=== PATIENT | female | born 1995 | race Caucasian/White ===

== ENCOUNTER 2024-11-27 21:06 | Emergency (ER) | payer OTHER, SELFPAY ==
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
[2024-11-27 21:16] VITALS: BP 117/78; PULSE 97; RESP 20; TEMP 36.2; O2SAT 98; BMI 29.9
--- OUTSIDE RECORDS SUMMARY | 2024-11-27 21:32 | XMS_ITS | Encounter Summary ---
Author Organization [facility] Address [address] [place] [address] Care Team Providers Care Target Network Analyst Name Role Phone Grace Santana DO Primary Care Provider [phone] Reason for Visit * Reason Comments New Patient Encounter Details Date Type Department Care Team (Late st Contact Info) Description 10/31/2024 Telephone [facility] [address] [address] Fabby Proctor CRNP, MSN [address] [address] New Patient Social History Tobacco Use Types Packs/Day Years Used Date Smoking Tobacco: Never Assessed Comments Unknown Sex and Gender Information Value Date Recorded Sex Assigned at Not on file Legal Sex Female 11:18 PM EDT Gender Identity Not on file Sexual Orientation Not on file documented as of this encounter Miscellaneous Notes * Telephone Encounter - Letitia Ellington - 11/02/2024 12:17 PM EDT 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 Previous crani @ 2010 Dr. 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 Should she wait for report to be faxed or is she ok to make an apt * Telephone Encounter - Jason Martins - 10/31/2024 12:17 PM EDT NEW PATIENT APPOINTMENT New patient intake completed - please see Flowsheet. PT doesn't have imaging done yet. She has a script from Pcp already though. Will call us once imaging is completed to schedule. How will records be sent (in [facility], in Care Everywhere, via fax)? Via fax If faxing, provide fax number based on Provider location If not referred to a specific provider, provide F# [phone] for records to be faxed. Is patient's insurance a participating [facility] insurance? (Yes/NON-PAR) par If NON-PAR, do NOT schedule appointment, inform patient case will be reviewed Appointment scheduled for nt scheduled no imaging If not scheduled and sent for review, put ???N/A?? and the reason why the appt wasn't scheduled I advised the patient to bring their imaging CD to the appointment (Yes/No) - yes I advised the patient that appointment scheduled is subjected to change based upon review (Yes/No) - no If Provider does not treat diagnosis, did you inform the patient of this? (Yes/No) - no If it does not apply, please use N/A All General Questions Were you referred to a specific provider?: No Who is referring you for neurosurgical care?: Dr Arcos Phone number for referring provider?: [phone] Does your insurance require a referral?: No Is this visit related to a MVA or WC case?: No (Ask) Please let me know what you are looking to be seen for?: Brain - Tumor, Cranial Nerve, Neurovascular (Do not ask but check protocol) Is patient's insurance plan a participating [facility] insurance?: Yes Brain - Tumor, Cranial Nerve, Neurovascular Do you have a diagnosis? : Yes Diagnosis:: low grade tectal glioma Do you have pain?: No Do you have seizures?: No Do you have language difficulties?: No Are you having any visual changes?: Yes (double vision, progressing bad to when had - dorsal mid brain issue) Are you experiencing any weakness?: No Have you had Chemo or Radiation?: No Have you had prior brain surgery? : Yes When did you have brain surgery?: 03/14 Where did you have brain surgery?: Dr Haro Have you had any imaging for this?: No Route to referred provider's New Patient Pool. If the reason to be seen is for SHUNTS/HYDROCEPHALUS, please route to [facility] HYDROCEPHALUS/SHUNT NEW PATIENT POOL. documented in this encounter Plan of Treatment Upcoming Encounters Date Type Department Care Team (Latest Contact Info) Description 01/15/2025 1:30 PM EDT Office Visit [facility] - Neurology [address] [place] [address] [place] [address] Jamin Ren MD [address] [place] [address] Referred by PCP - Visual Changes documented as of this encounter Visit Diagnoses Not on filedocumented in this encounter Care Teams Target Network Analyst Relationship Specialty Start Date End Date Grace Santana DO PCP - General Emergency Medicine 10/15/14 documented as of this encounter
--- OUTSIDE RECORDS SUMMARY | 2024-11-27 21:32 | XMS_ITS | Encounter Summary ---
Author Organization [facility] Address [address] [place] [address] Phone Care Team Providers Care Teamsite Developer Name Role Phone Jett العراقيcecelia Unavailable Grace Santana DO Primary Care Provider [phone] Source Comments This summary of care document has been generated from [facility]. It contains important information for the transfer of care, and complies with [facility] Meaningful Use requirements. If you have received this document in error, please contact [facility] by calling [phone], or email us at: [email or web address] Reason for Visit * Reason Onset Date Comments Follow Up 08/31/2014 Encounter Details Date Type Department Care Team (Late st Contact Info) Description 08/31/2014 [facility] [address] [place] [address] Zuleima Rapp RN [address] [place] [phone] Follow Up Social History Tobacco Use Types Packs/Day Years Used Date Smoking Tobacco: Former Cigarettes Q uit: 06/22/2012 Smokeless Tobacco: Never Alcohol Use Standard Drinks/Week Comments Yes 2.5 (1 standard drink = 0.6 oz p ure alcohol) Comments No Sex and Gender Information Value Date Recorded Sex Assigned at Not on file Legal Sex Female 9:44 AM EST Gender Identity Not on file Sexual Orientation Not on file documented as of this encounter Miscellaneous Notes * Telephone Encounter - Zuleima Rapp RN - 08/31/2014 3:44 PM EDT Mom called to see if the MRI was received at [facility] and was looked at by Dr Greer. Denice complaints of near syncopal episodes, nausea, vertigo, muscle weakness they last about 4 days and occur about every 6 weeks. She is going to a neurologist locally for evaluation and was given the information to call for record transfer. documented in this encounter Plan of Treatment Not on file documented as of this encounter Visit Diagnoses Not on filedocumented in this encounter Care Teams Teamsite Developer Relationship Specialty Start Date End Date Grace Santana DO [address] [place] [id number] PCP - General 11/09/12 Chacorta العراقي [address] [facility] Floor [address] [place] [address] Care Team General Pediatrics 09/06/06 documented as of this encounter
--- OUTSIDE RECORDS SUMMARY | 2024-11-27 21:32 | XMS_ITS | Clinical Summary ---
Author Organization [facility] Address [address] [place] [address] Phone Care Team Providers Care Blast Hole Driller Name Role Phone Grace Santana DO Primary Care Provider [phone] Allergies No known active allergies Medications escitalopram (LEXAPRO) 10 mg tablet Take 10 mg by mouth daily Active escitalopram (LEXAPRO) 5 mg tablet Take 5 mg by mouth daily Active ondansetron (ZOFRAN) 4 mg tabletIndicatio ns:Gastritis Take 1 tablet (4 mg total) by mouth every 8 (eight) hours as needed for nausea or vomiting 5 tablet 06/26/2018 Active omeprazole (PriLOSEC) 20 mg delayed release capsuleIndicati ons:Gastritis Take 1 capsule (20 mg total) by mouth daily 20 capsule 06/26/2018 Active Social History Tobacco Use Types Packs/Day Years Used Date Smoking Tobacco: Never Smokeless Tobacco: Never Alcohol Use Standard Drinks/Week Comments Yes 0 (1 standard drink = 0.6 oz pur e alcohol) socially (once a month) Comments No Sex and Gender Information Value Date Recorded Sex Assigned at Not on file Legal Sex Female 5:42 AM EDT Gender Identity Not on file Sexual Orientation Not on file Last Filed Vital Signs Vital Sign Reading Time Taken Comments Blood Pressure 100/61 06/26/2018 9:30 AM EDT Pulse 86 06/26/2018 9:30 AM EDT Temperature 36.6 C (97.9 F) 06/26/2018 5:48 AM EDT Respiratory Rate 22 06/26/2018 9:30 AM EDT Oxygen Saturation 98% 06/26/2018 9:30 AM EDT Inhaled Oxygen Concentration - - Weight 82.6 kg (182 lb) 06/26/2018 5:48 AM EDT Height 167.6 cm (5' 6 ) 06/26/2018 5:48 AM EDT Body Mass Index 29.38 06/26/2018 5:48 AM EDT Plan of Treatment Not on file [place] [employer] Care Teams Blast Hole Driller Relationship Specialty Start Date End Date Grace Santana DO [address] [place] [address] [address] JOSE JOHNS [phone] PCP - General Internal Medicine 06/26/18
--- OUTSIDE RECORDS SUMMARY | 2024-11-27 21:32 | XMS_ITS | Encounter Summary ---
Author Organization [facility] Address [address] [place] [address] Care Team Providers Care Television News Anchor Name Role Phone Saloni Paiz RN Unavailable Grace Santana DO Primary Care Provider [phone] Encounter Details Date Type Department Care Team (Late st Contact Info) Description 07/20/2019 Lab Requisition [facility] [address] [place] [address] January Prescott DO [address] [place] [address] Cough; Contact with and (suspected) exposure to other viral communicable diseases Social History Tobacco Use Types Packs/Day Years Used Date Smoking Tobacco: Never Assessed Comments Unknown Sex and Gender Information Value Date Recorded Sex Assigned at Not on file Legal Sex Female 11:27 PM EST Gender Identity Not on file Sexual Orientation Not on file documented as of this encounter Plan of Treatment Not on file documented as of this encounter Procedures Procedure Name Priority Date/Time Associated Diagnosis Comments SARS COV-2 (COVID-19) ADELINE STAT 07/20/2019 1:00 PM EDT Cough Contact with and (suspected) exposure to other viral communicable diseases documented in this encounter Results * SARS COV-2 (COVID-19) ADELINE (07/20/2019 1:00 PM EDT) SARS-CoV-2 RNA Qualitative NAAT Negative Negative 07/21/2019 1:43 PM EDT [facility] Comment:SARS-CoV-2 RNA Not D etected. Negative results do not preclude SARS-CoV-2 infection and should not be used as the sole basis for patient management decisions. Negative results must be combined with clinical observations, patient history, and epidemiological information. Swab (specimen) Combined nasopharyngeal and oropharyngeal swab / Unknown 07/20/2019 1:00 PM EDT 07/21/2019 7:18 AM EDT Narrative [facility] - 07/21/2019 1:43 PM EDT Methodology: Yaz janes SARS-CoV-2 cleared for Emergency Use Only under FDA. FDA approved specimen types include nasopharyngeal swab or oropharyngeal swab collected using [place] UTM-RT system or BD [place] Viral Transport System (UVT). The janes SARS-CoV-2 is a real-time qualitative PCR assay. This assay utilizes two targets - one is the ORF1/a, a non structural region unique to SARS-CoV-2. The other, chosen for kirk-Sarbecovirus detection, is specific to a conserved region in the structural protein envelope E-gene. Both targets will detect SARS-CoV-2 viral RNA. The test was modified and validated in-house for use with nasopharyngeal swab or oropharyngeal swab collected using BD UTM or E-swab collection device, bronchial washes, or bronchial lavage. The performance characteristics for these additional specimen types were determined by the [facility] Laboratory of [facility]. It has not been cleared or approved by the U.S. Food and Drug Administration (FDA).The FDA has determined that such clearance or approval is not necessary. This laboratory is certified under the Clinical Laboratory Improvements Act of 1988 (CLIA-88) as qualified to perform high complexity clinical testing. For additional information regarding diagnostic use of Emergeny Use Only testing kits, please visit https://www.fda.gov/media/649688/download for a Fact Sheet supplied by the FDA. January Prescott DO LAB MICROBIOLOGY - GENERAL OR DERABLES Final Result [facility] [address] [place] [address] documented in this encounter Visit Diagnoses Diagnosis Cough Contact with and (suspected) exposure to other viral communicable diseases documented in this encounter Additional Health Concerns Infection Onset Date Last Indicated Resolved Time Covid-19 - Person Under Investigation 04/02/2021 04/02/2021 04/03/2021 1:[address] documented as of this encounter Care Teams Television News Anchor Relationship Specialty Start Date End Date Grace Santana DO [address] [place] [address] [place] [address] PCP - General Internal Medicine 04/02/21 Saloni Paiz, YUNIOR [address] [place] [address] Wad Impregnator/Coordinator 04/12/2008/07 documented as of this encounter
--- OUTSIDE RECORDS SUMMARY | 2024-11-27 21:32 | XMS_ITS | Clinical Summary ---
Author Organization [facility] Address [address] [place] [address] Care Team Providers Care Photo Mask Inspector Name Role Phone Max Grace Luis DO Primary Care Provider [phone] Allergies No known active allergies Medications * This document contains information received from the source organization and may not represent a complete record from that organization. vilazodone (Viibryd) 40 mg tablet tablet take 1 tablet daily 30 tablet 1 08/05/2020 Active Social History Tobacco Use Types Packs/Day Years Used Date Smoking Tobacco: Never Assessed Comments Unknown Sex and Gender Information Value Date Recorded Sex Assigned at Not on file Legal Sex Female 11:27 PM EST Gender Identity Not on file Sexual Orientation Not on file Last Filed Vital Signs Vital Sign Reading Time Taken Comments Blood Pressure 107/73 04/02/2021 1:21 PM EST Pulse 81 04/02/2021 1:21 PM EST Temperature 36.4 C (97.5 F) 04/02/2021 1:21 PM EST Respiratory Rate 18 04/02/2021 1:21 PM EST Oxygen Saturation 99% 04/02/2021 1:21 PM EST Inhaled Oxygen Concentration - - Weight - - Height - - Body Mass Index - - Plan of Treatment Health Maintenance Due Date Last Done Comments Annual Preventative Visit 09/05/2020 09/06/2019 Cervical Cancer Screening 11/05/2023 Influenza Vaccine (#1) 2024 3, 02/10/2012, 01/07/2011, Additional history exists Zoster Vaccines (1 of 2) 11/05/2043 Hepatitis C Screening Completed 04/11/2020 Pneumococcal immunization (0-49) Aged Out No longer eligible based on patient's age to complete this topic Procedures Procedure Name Priority Date/Time Associated Diagnosis Comments EAP CONVERSION ACUTE HEPATITIS PANEL Routine 04/11/2020 11:28 AM EST from Last 3 Months or Most Recently Relevant to Health Maintenance Results * ACUTE HEPATITIS PANEL (04/11/2020 11:28 AM EST) HEPATITIS A AB IGM NONREACTIVE NR [facility] [facility] HISTORIC HEP B CORE AB IGM NONREACTIVE NR [facility] HIST[facility] HEP B SURF ANTIGEN NONREACTIVE NR [facility] HISTORIC HEPATITIS C ANTIBODY NONREACTIVE NR [facility] HISTORIC 04/11/2020 11:2 8 AM EST 04/11/2020 11:42 AM EST us Tom Morin DO LAB BLOOD ORDERABLES Final Result [facility] HISTORIC from Last 3 Months or Most Recently Relevant to Health Maintenance Care Teams Photo Mask Inspector Relationship Specialty Start Date End Date Grace Santana DO [address] [place] [address] PCP - General Internal Medicine 04/02/21
--- OUTSIDE RECORDS SUMMARY | 2024-11-27 21:32 | XMS_ITS | Clinical Summary ---
Author Organization [facility] Address [address] [place] [address] Care Team Providers Care Tripe Washer Name Role Phone Grace Santana DO Primary Care Provider [phone] Allergies No known active allergies Encounters Date Type Department Care Team Description 10/31/2024 Telephone [facility] [address] [facility] [address] [place] [address] Fabby Proctor CRNP, MSN New Patient from Last 3 Months Immunizations Immunization Administration Dates Next Due MMR 10/17/2014 Social History Tobacco Use Types Packs/Day Years Used Date Smoking Tobacco: Never Assessed Comments Unknown Sex and Gender Information Value Date Recorded Sex Assigned at Not on file Legal Sex Female 11:18 PM EDT Gender Identity Not on file Sexual Orientation Not on file Plan of Treatment Upcoming Encounters Date Type Department Care Team (Latest Contact Info) Description 01/15/2025 1:30 PM EDT Office Visit [facility] - Neurology [address] [place] [address] [place] [id number] Jamin Ren MD [address] [place] [address] Referred by PCP - Visual Changes Health Maintenance Due Date Last Done Comments HEPATITIS C SCREENING 1993 HIV SCREENING ONCE 2008 LIPIDS 11/05/2011 Colposcopy 2014 Excision 2014 Pap Smear 2014 DTAP/TDAP/TD Vaccine (6 - Td or Tdap) 11/18/2016 11/18/2006, 05/05/1995, 05/18/1994, Additional history exists Cervical Cancer Screening 11/05/2023 HPV/Cotest 11/05/2023 COVID-19 Vaccine ( season) 2023 INFLUENZA Vaccine (#1) 2024 , 01/04/2023, 03/09/2013, Additional history exists ZOSTER VACCINES (1 of 2) 11/05/2043 Hepatitis A Vaccine Completed 11/18/2006, HPV Vaccine Completed 06/09/2012, 01/21, 08/19/2011 Pneumococcal 0-49 Vaccine Aged Out No longer eligible based on patient's age to complete this topic Insurance [facility] Care Teams Tripe Washer Relationship Specialty Start Date End Date Grace Santana DO PCP - General Emergency Medicine 10/15/14
--- OUTSIDE RECORDS SUMMARY | 2024-11-27 21:32 | XMS_ITS ---
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 Unable to look up. Has seen Dr. Lopes anymore. 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 The tumor is low grade; however grading may be difficult relative to the small dimension. Correlation with clinical findings and imaging is required for optimal evaluation. Seeing [facility] Neurosurgery - Dr. Haro. Seeing Dr. Flores - 08/22/12 - stable Diagnoses: 1. Tectal Glioma Impression/Plan: Denice is a 16 year old female with a tectal glioma and history of chronic headaches, panic attacks and an anxiety disorder. These symptoms have all largely resolved in the past year and Ally is feeling very well. 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 Zoey Galdamez is a 16 year old female with a tectal glioma and history of chronic headaches, panic attacks and an anxiety disorder. These symptoms have all largely resolved in the past year and Ally is feeling very well. Her MRI from last week shows a stable residual tectal mass without evidence of hydrocephalus. I will see her back in six months' time for an MRI and follow up examination. Sooner, if the need arises. Glioma of midbrain Overview (02/21/2016): Tectal Glioma POTS (postural orthostatic tachycardia syndrome) Astrocytoma Overview (02/21/2016): 03/19 sterotactic bx, 03/14 tumor bx and endoscopic ventriculostomy Current Treatment and Therapy Plans No current plan information found. Past Treatment and Therapy Plans No past plan information found. Lifetime Dose Tracking * Chemical Lifetime Dose Automatic Entry Manual Entr y gadopentetate dimeglumine 49.2 mL 49.2 mL 0 mL gadobutrol 26.8 mL 26.8 mL 0 mL Resolved Problems Problem Noted Date Diagnosed Date Resolved Date Anxiety 08/19/2011 03/09/2013 Vocal cord dysfunction 08/19/201108/18 Overview (08/19/2011): Hasn't had this in a while Improved with treatment for anxiety Dyspnea 03/12/2011 08/19/2011 Chest pain 01/21/2011 08/19/2011 Overview (06/13/2011): Feel it is anxiety. Extensive workup has been normal. She is seeing a couselor. Breathing difficulty 01/21/2011 012 Dizziness 04/15/2010 08/19/2010 Overview (04/15/2010): 1 week of rushing sensation to head and dots/tunnel vision, worse when standing; weak in hot shower. 1 day of world turned sideways , feeling she would fall. +occasional episodes of tinnitis No fall, syncope, LOC. No ASTUDILLO, emesis. Low back pain 01/31/2009 01/28/2010 Spinal asymmetry (< 10 degrees) 01/31/2009 08/19/2011 costochondritis 2005 08/18/2010 Overview (2005): Has seen Dr. Barfield and pain management clinic. Benign neoplasm of scalp and skin of neck 06/15/2005 08/19/2010
--- OUTSIDE RECORDS SUMMARY | 2024-11-27 21:32 | XMS_ITS | Clinical Summary ---
Author Organization [facility] Address [address] [address] Phone Care Team Providers Care Operations And Intelligence Assistant Name Role Phone Jett العراقيcecelia Unavailable Grace Santana DO Primary Care Provider [phone] Allergies No known active allergies Medications Viibryd 40 MG Oral TABS Take 40 mg by mouth once a day. 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 The tumor is low grade; however grading may be difficult relative to the small dimension. Correlation with clinical findings and imaging is required for optimal evaluation. Seeing [facility] Neurosurgery - Dr. Haro. Seeing Dr. Flores - 08/22/12 - stable Diagnoses: 1. Tectal Glioma Impression/Plan: Willie is a 16 year old female with [...] 03/13 Overview (10/30/2012): 08/22/12 - seeing Dr. Greer - Willie is a 16 year old female with [...] bx, 03/14 tumor bx and endoscopic ventriculostomy Resolved Problems Problem Noted Date Diagnosed Date [...] scalp and skin of neck 06/15/2005 08/19/2010 Immunizations Immunization Administration Dates Next Due DTP 11/13/1998 DTP/HiB 05/05/1995, 5,03/09/1994,01/12/19 94 Flu LIVE, intraNASAL 01/28/2010,01/24/2009 Flu-H1N1, injectable, 3 + yrs 01/28/2009 HPV4 (Gardasil) 06/09/2012,02/10/2012,08/19/2011 Hepatitis A (Not Specified) 11/18/2006, 6 Hepatitis B, Ped/adol (3 dose) 11/10/1994,1993,1993 Influenza (Not Specified) 03/09/2013,,01/07/2011,01/02/20 08,01/30/2003 MMR 11/13/1998,01/08/1995 Meningococcal (MenACTra) Conjugate 08/19/2010, OPV 05/05/1995, 5,03/09/1994,01/12/19 94 PPD 08/22/2012 Td (7+ yo)(Not Specified) 10/24/2004 Tdap (boostrix/adacel) 11/18/2006 Varicella 11/18/2006,12/13/1997 Family History Medical History Relation Name Comments Heart-Other Brother prolonged qt Asthma Father Hypercholesterolemia Father Heart-Other Maternal Grandfather afib Hypercholesterolemia Maternal Grandfather Hayfever/allergic Mother Blood-Sickle Paternal Grandfather lung Cancer Paternal Grandfather lung Heart-Early [place] Paternal Grandfather Cancer Paternal Grandmother breast Substance Use Paternal Uncle Defect No Family History Blood-Other No Family History Childhood No Family History Diabetes No Family History Eczema No Family History Hypertension No Family History Intellectual Disability (ID) No Family History Kidney No Family History Psychiatric No Family History SUDDEN No Family History Seizures No Family History Tuberculosis No Family History Relation Name Status Comments Brother Father Maternal Grandfather Mother Paternal Grandfather Paternal Grandmother Paternal Uncle Social History Tobacco Use Types Packs/Day Years [...] Sign Reading Time Taken Comments Blood Pressure 127/79 04/01/2020 3:08 PM EST Pulse 119 04/01/2020 3:08 PM EST Temperature 36.1 C (97 F) 04/01/2020 3:08 PM EST Respiratory Rate 20 04/01/2020 3:08 PM EST Oxygen Saturation 99% 09/16/2010 8:42 AM EDT Inhaled Oxygen Concentration - - Weight 89.3 kg (196 lb 13.9 oz) 04/01/2020 3:08 PM EST Height 167.5 cm (5' 5.95 ) 04/01/2020 3:08 PM ES T Body Mass Index 31.83 04/01/2020 3:08 PM EST Plan of Treatment Health Maintenance Due Date Last Done Comments COVID-19 Vaccine ( season) 2024, 05/08/2020 [address] [place] [id number] [employer] PPO & POS Care Teams Operations And Intelligence Assistant Relationship Specialty Start Date End Date Grace Santana DO [address] [place] [address] [place] [id number] PCP - General 11/09/12 Chacorta العراقي [address] [facility] Floor 2 [place] [address] Care Team General Pediatrics 09/06/06
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
[2024-11-27 22:13] LABS: UPreg QC Valid YES
[2024-11-28 00:10] VITALS: BP 108/64; PULSE 84; RESP 20; TEMP 37; O2SAT 97
[2024-11-28 00:16] VITALS: BP 117/78; PULSE 97; RESP 20; TEMP 36.2; O2SAT 98
== END 2024-11-28 00:16 | disposition home or self-care (01) ==
PROVIDERS: Physician Assistant Medical; Emergency Provider Emergency Medicine
DX: S06.0X0A Concussion without loss of consciousness, initial encounter (principal); Y04.8XXA Assault by other bodily force, initial encounter; Y93.89 Activity, other specified; Y92.239 Unspecified place in hospital as the place of occurrence of the external cause; Y99.0 Civilian activity done for income or pay; R51.9 Headache, unspecified; H53.149 Visual discomfort, unspecified; R42 Dizziness and giddiness
CPT/HCPCS: 70450; 70486; 81025; 99283; 99284

== ENCOUNTER → 2024-11-27 21:45 | Outpatient (BNV) | payer OTHER, SELFPAY | PROVIDERS: Emergency Provider Emergency Medicine; Visit Provider Student in an Organized Health Care Education/Training Program | DX: S00.83XA Contusion of other part of head, initial encounter (principal); S06.0XAA Concussion with loss of consciousness status unknown, initial encounter | CPT/HCPCS: 70450; 70486 ==

== ENCOUNTER 2024-12-15 13:34 | Outpatient (REF) | payer BC, SELFPAY ==
--- NOTE | ~2024-12-15 | MR_ITS ---
CLINICAL HISTORY: VISION CHANGES (DIFFICULTY SEEING RT SIDE) MR Brain with and without gadolinium Comparison: 11/27/2024 CT Findings: No restricted diffusion. Post interventional right frontal lobe changes. No midline shift. No hydrocephalus. Up to 10 x 10 mm, somewhat nodular, mildly FLAIR hyperintense region in the right superior colliculus and neighboring left paramidline aspect of the quadrigeminal plate with a neighboring small cystic focus (this is continuous with a more proximal thin tract like focus possibly site of prior intervention/biopsy; old hemorrhagic products are seen at level of the cystic focus; correlation with past surgical history recommended) is seen. No evidence of abnormal enhancement at this level or rest of the brain. Vascular flow voids are intact. The orbits are normal. Small left maxillary sinus polyp/retention cyst. No focal bone lesion. IMPRESSION: 10 mm, somewhat nodular, mildly FLAIR hyperintense region in the right superior colliculus and neighboring left paramidline aspect of the quadrigeminal plate with a neighboring small cystic focus (this is continuous with a more proximal thin tract like focus possibly site of prior intervention/biopsy; correlation with past surgical history recommended) is seen. Neoplastic process (such as glioma) cannot be excluded. Correlation with past history and MRI would be of value. No evidence of abnormal enhancement at this level or rest of the brain. This document has been electronically signed by: Kusum Murry MD on 12/18/2024 13:51:50
--- OUTSIDE RECORDS SUMMARY | 2024-12-15 14:54 | XMS_ITS | Patient Health Record ---
Author Organization [facility] Address [address] [place] [address] [address] [place] [address] Care Team Providers Care Network Pricing Consultant Name Role Phone Laly Arcos Primary Care Provider Allergies No Known Allergies Reason For Referral No Information Medications Medication SIG (Take, Route, Fr equency, Duration) Notes Start Date End Date Status lamoTRIgine 100 MG TAKE 1 TABLET (100MG ) BY MOUTH DAILY Oral; Duration: 30 Days Ac tive Problems Problem Type SNOMED Code ICD Code Onset Dates Problem Status W/U Status Risk Notes Problem Mixed anxiety and depressive disorder (724103186) Anxiety and depression (F41.8) Active confirmed Problem Postural orthostatic tachycardia syndrome (disorder) (792970342) POTS (postural orthostatic tachycardia syndrome) (I49.8) Active confirmed Problem Low grade glioma of brain (737114449) 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 Vital Signs Heart Rate 90 /min 10/19/2024 Respiratory Rate 16 /min 10/19/2024 Height-cm 167.64 cm 10/19/2024 Oximetry 99 % 10/19/2024 Blood pressure diastolic 83 mm Hg 10/19/2024 Weight-kg 88.91 kg 10/19/2024 Height 66 in 10/19/2024 Blood pressure systolic 126 mm Hg 10/19/2024 Weight 196 lbs 10/19/2024 BMI 31.63 kg/m2 10/19/2024 Encounters Encounter Location Date Provider Diagnosis [facility] [address] [place] [id number] 10/20/2024 Laly Arcos [facility] [address] [place] [address] 10/19/2024 Laly Arcos Vision changes H53.9 ; POTS (postural orthostatic tachycardia syndrome) I49.8 ; Anxiety and depression F41.8 ; Screening for endocrine disorder Z13.29 ; Screening for lipid disorders Z13.220 ; Screening for diabetes mellitus (DM) Z13.1 ; Other general symptoms and signs R68.89 and Low grade glioma of brain C71.9 Assessments Encounter Date Diagnosis (ICD Code) Assessment Notes Treatment Notes Treatment Clinical Notes Section Notes 10/19/2024 Vision changes (ICD-10 - H53.9) Vision Changes: - Ddx includes - Advised to monitor sxs. Discussed when to seek emergency care - Referred to neuro-ophthalmo logy - Check Labs: Iron+TIBC, Ferritin, Vitamin B12+Folate, Vitamin D, Magnesium - Rx: MRI Brain w/ Contrast - F/U RESULTS - F/U PRN - Pt understands and agrees to plan 10/19/2024 POTS (postural orthostatic tachycardia syndrome) (ICD-10 - I49.8) POTS: - Established dx, controlled - Advised to monitor sxs. Discussed when to seek emergency care - Referred to cardiology - Check Labs: Iron+TIBC, Ferritin, Vitamin B12+Folate, Vitamin D, Magnesium - F/U RESULTS - F/U PRN - Pt understands and agrees to plan 10/19/2024 Anxiety and depression (ICD-10 - F41.8) Anxiety/Depress ion:- Established dx, controlled- No SI/HI- REFILLED Rx: lamoTRIgine 100 MG Tablet PO QD- F/U 6 months- Pt understands and agrees to plan 10/19/2024 Screening for endocrine disorder (ICD-10 - Z13.29) 10/19/2024 Screening for lipid disorders (ICD-10 - Z13.220) 10/19/2024 Screening for diabetes mellitus (DM) (ICD-10 - Z13.1) 10/19/2024 Other general symptoms and signs (ICD-10 - R68.89) 10/19/2024 Low grade glioma of brain (ICD-10 - C71.9) Hx of Low Grade Tectal Glioma: - Pt reported hx of low grade tectal glioma - Advised to monitor sxs - Referred to neuro - Rx: MRI Brain w/ Contrast - F/U RESULTS - F/U PRN - Pt understands and agrees to plan 10/19/2024 Other Pt. understands and agrees with plan. Pt. to contact office if any symptoms are worsening or remain uncontrolled. Pt. to contact office if does not hear back from our office about any testing results within 7 days of testing date. DO Scribe Attestation: All medical record entries made by the Scribe were at my direction and personally dictated by me. I have reviewed the chart and agree that the record accurately reflects my personal performance of the history, physical exam, assessment, and plan. I have also personally directed, reviewed, and agree with the discharge instructions. Homicide Squad Sergeant Attestation: Documented by Yolanda Ventura acting as a scribe for Laly Arcos DO. Plan Of Treatment Pending Test Test Name Order Date IRON+TIBC 10/19/2024 CBC WITH DIFF/PLATELET 10/19/2024 VITAMIN D, 25-HYDROXY 10/19/2024 LIPID PANEL 10/19/2024 COMP. 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
--- OUTSIDE RECORDS SUMMARY | 2024-12-15 14:54 | XMS_ITS | Clinical Summary ---
Author Organization [facility] Address [address] [place] [address] Care Team Providers Care Insurance Defense Paralegal Name Role Phone Max Grace Luis DO Primary Care Provider [phone] Allergies No known active allergies Medications * [...] EST) HEPATITIS A AB IGM NONREACTIVE NR [facility] HEP B CORE AB IGM [facility]REACTIVE NR [facility] HE[facility] B SURF ANTIGEN NONREACTIVE NR [facility] HEPATITIS C ANTIBODY NONREACTIVE NR [facility] 04/11/2020 11:2 8 AM EST 04/11/2020 11:42 AM EST us Tom Morin DO LAB BLOOD ORDERABLES Final Result [facility] from Last 3 Months or Most Recently Relevant to Health Maintenance Care Teams Insurance Defense Paralegal Relationship Specialty Start Date End Date Grace Santana DO [address] [place] [id number] PCP - General Internal Medicine 04/02/21
--- OUTSIDE RECORDS SUMMARY | 2024-12-15 14:54 | XMS_ITS ---
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 The tumor is low grade; however grading may be difficult relative to the small dimension. Correlation with clinical findings and imaging is required for optimal evaluation. Seeing [facility] Neurosurgery - Dr. Haro. Seeing Dr. Flores [...] of tinnitis No fall, syncope, LOC. No ASTUDILOL, emesis. Low back pain 01/31/2009 01/28/2010 Spinal asymmetry (< 10 degrees) 01/31/2009 08/19/2011 costochondritis 2005 08/18/2010 Overview (2005): Has seen Dr. Barfield and pain management clinic. Benign neoplasm of scalp and skin of neck 06/15/2005 08/19/2010
--- OUTSIDE RECORDS SUMMARY | 2024-12-15 14:54 | XMS_ITS | Clinical Summary ---
Author Organization [facility] Address [address] [place] [address] Care Team Providers Care Correspondence Analyst Name Role Phone Grace Santana DO Primary Care Provider [phone] Allergies No known active allergies Encounters Date Type Department Care Team Description 10/31/2024 Telephone [facility] [address] [facility] [address] [place] [address] Fabby Proctor CRNP, MSN New [...] Description 01/15/2025 1:30 PM EDT Office Visit [facility] - Neurology [address] [place] [address] [place] [id number] Jamin Ren MD [address] [place] [address] Referred by PCP - Visual Changes Health Maintenance Due Date Last Done Comments HEPATITIS C SCREENING 1993 HIV SCREENING ONCE 2008 LIPIDS 11/05/2011 Colposcopy 2014 Excision 2014 Pap Smear 2014 DTAP/TDAP/TD Vaccine (6 - Td or Tdap) 11/18/2016 11/18/2006, 05/05/1995, 05/18/1994, Additional history exists Cervical Cancer Screening 11/05/2023 HPV/Cotest 11/05/2023 COVID-19 Vaccine ( season) 2024 INFLUENZA Vaccine (#1) 2024 , 01/04/2023, 03/09/2013, Additional history exists ZOSTER VACCINES (1 of 2) 11/05/2043 Hepatitis A Vaccine Completed 11/18/2006, HPV Vaccine Completed 06/09/2012, 01/21, 08/19/2011 Pneumococcal 0-49 Vaccine Aged Out No longer eligible based on patient's age to complete this topic Insurance [facility] Care Teams Correspondence Analyst Relationship Specialty Start Date End Date Grace Santana DO PCP - General Emergency Medicine 10/15/14
--- OUTSIDE RECORDS SUMMARY | 2024-12-15 14:54 | XMS_ITS | Clinical Summary ---
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 The tumor is low grade; however grading may be difficult relative to the small dimension. Correlation with clinical findings and imaging is required for optimal evaluation. Seeing [facility] Neurosurgery - Dr. Haro. Seeing [...] Grandfather lung Cancer Paternal Grandfather lung Heart-Early [place] Paternal Grandfather Cancer Paternal Grandmother breast Substance [...] COVID-19 Vaccine ( season) 2024, 05/08/2020 Insurance * Guarantor: WILLIE CASILLAS Account Type Relation to Patient Date of Phone Billing Address Personal/Family Father [address] [place] [address] [address] [place] [id number] [employer] PPO & POS Care Teams Sampling Theory Teacher Relationship Specialty Start Date End Date Grace Santana DO [address] [place] [address] [place] [phone] PCP - General 11/09/12 Chacorta العراقي [address] [facility] [address] [place] [address] Care Team General Pediatrics 09/06/06
--- OUTSIDE RECORDS SUMMARY | 2024-12-15 14:54 | XMS_ITS | Encounter Summary ---
Author Organization [facility] Address [address] [place] [address] Care Team Providers Care Farmworker Fur Name Role Phone Saloni Paiz RN Unavailable Grace Santana DO Primary Care Provider [phone] Encounter Details Date Type Department Care Team (Late st Contact Info) Description 07/20/2019 Lab Requisition [facility] [address] [place] [address] January Prescott DO [address] [place] [address] Cough; Contact with and (suspected) exposure to [...] nasopharyngeal swab or oropharyngeal swab collected using Shoozy UTM-RT system or BD Almo Viral Transport System (UVT). The janes SARS-CoV-2 [...] the [facility] Pathology Laboratory of [facility]. It has not been cleared or approved by the U.S. Food and Drug Administration (FDA).The FDA has determined that such clearance or approval is not necessary. This laboratory is certified under the Clinical Laboratory Improvements Act of 1988 (CLIA-88) as qualified to perform high complexity clinical testing. For additional information regarding diagnostic use of Emergeny Use Only testing kits, please visit https://www.fda.gov/media/894102/download for a Fact Sheet supplied by the FDA. January Prescott DO LAB MICROBIOLOGY - GENERAL OR DERABLES Final Result [facility] [address] [place] [address] documented in this encounter Visit Diagnoses Diagnosis Cough Contact with and (suspected) exposure to other viral communicable diseases documented in this encounter Additional Health Concerns Infection Onset Date Last Indicated Resolved Time Covid-19 - Person Under Investigation 04/02/2021 04/02/2021 04/03/2021 1:[address] documented as of this encounter Care Teams Farmworker Fur Relationship Specialty Start Date End Date Grace Santana DO [address] [place] [address] [place] [address] PCP - General Internal Medicine 04/02/21 Saloni Paiz, YUNIOR [address] [place] [address] Risk Professional/Coordinator 04/12/2008/07 documented as of this encounter
--- OUTSIDE RECORDS SUMMARY | 2024-12-15 14:54 | XMS_ITS | Encounter Summary ---
Author Organization [facility] Address [address] [facility] [place] [address] Phone Care Team Providers Care Material Carrier Name Role Phone Jett العراقيcecelia Unavailable Grace Santana DO Primary Care Provider [phone] Source Comments This summary of care document has been generated from [facility]. It contains important information for the transfer of care, and complies with [facility] Meaningful Use requirements. If you have received this document in error, please contact [facility] by calling [phone], or email us at: [email or web address] Reason for Visit * Reason Onset Date Comments Follow Up 08/31/2014 Encounter Details Date Type Department Care Team (Late st Contact Info) Description 08/31/2014 [facility] [address] [place] [id number] Zuleima Rapp RN [address] [place] [phone] Follow Up Social History Tobacco Use [...] see if the MRI was received at [facility] and was looked at by Dr Greer. [...] on filedocumented in this encounter Care Teams Material Carrier Relationship Specialty Start Date End Date Grace Santana DO [address] [place] [id number] PCP - General 11/09/12 Chacotra العراقي [address] [facility] [address] [place] [address] Care Team General Pediatrics 09/06/06 documented as of this encounter
--- OUTSIDE RECORDS SUMMARY | 2024-12-15 14:54 | XMS_ITS | Clinical Summary ---
Author Organization [facility] Address [address] [place] [address] Phone Care Team Providers Care Architectural Modeler Name Role Phone Grace Santana DO Primary Care Provider [phone] Allergies No known active allergies Medications escitalopram [...] Plan of Treatment Not on file Insurance [employer] BL[employer]UE CROSS Care Teams Architectural Modeler Relationship Specialty Start Date End Date Grace Santana DO [address] [place] [address] [address] JOSE JOHNS [phone] PCP - General Internal Medicine 06/26/18
== END 2024-12-15 13:35 | disposition home or self-care (01) ==
LOC: HO.MRI 13:34
PROVIDERS: Visit Provider Family Medicine
DX: H53.9 Unspecified visual disturbance (principal)
CPT/HCPCS: 70553; A9585

== ENCOUNTER → 2024-12-15 13:44 | Outpatient (BNV) | payer BC, SELFPAY | PROVIDERS: Visit Provider Radiology Diagnostic Radiology | DX: H53.9 Unspecified visual disturbance (principal) | CPT/HCPCS: 70553 ==